=== PATIENT | male | born 1975 | race Caucasian/White ===

== ENCOUNTER 2017-02-20 03:05 | Emergency (ER) | payer OTHER | END 2017-02-20 07:30 | disposition home or self-care (01) | LOC: ER 03:05 | DX: M46.46 Discitis, unspecified, lumbar region (principal); F17.210 Nicotine dependence, cigarettes, uncomplicated; Z87.442 Personal history of urinary calculi | CPT/HCPCS: 36415; 96374; 96375; J1885 ==